=== PATIENT | female | born 1950 | race Two or more races ===

== ENCOUNTER → 2025-05-19 | Outpatient (CLI) | payer MEDICARE, SELFPAY ==
--- NOTE | 2025-05-19 10:41 | XR_ITS ---
Examination: Sinus series 3 views TECHNIQUE: Fransisco Metcalf lateral sinus series 3 views Date and time: May 19, 2025 1048 hours INDICATIONS: Sinus pressure and pain beginning 2009 FINDINGS: Prominent opacity in the frontal air cells Haziness in the ethmoid air cells maxillary antra and sphenoid air cells No fluid levels IMPRESSION: Chronic pansinusitis, severe frontal air cells
== END | disposition home or self-care (01) ==
DX: J32.4 Chronic pansinusitis (principal)
CPT/HCPCS: 70210